=== PATIENT | female | born 1985 | race Native Hawaiian/Other Pacific Islander ===

== ENCOUNTER 2016-12-28 12:21 | Emergency (ER) | payer SELFPAY ==
[2016-12-28 13:16] VITALS: O2SAT 100
[2016-12-28] MEDS ORDERED: Sodium Chloride 0.9% 1,000 ML IV ONE (14:29)
[2016-12-28] MEDS ORDERED: Sodium Chloride 0.9% 1,000 ML ONE (14:52)
[2016-12-28 15:05] LABS: BASO % 0.7 % (0.0-2.0); EOS % 0.5 % (0.0-4.0); HEMATOCRIT 24.4 % (34.0-47.0); LYMPH # 1.5 K/uL (1.0-4.3); LYMPH % 30.3 % (20.0-40.0); MEAN CELL VOLUME 64.9 fL (81.0-99.0); MEAN CORPUSCULAR HEMOGLOBIN 18.8 pg (27.0-31.0); MEAN CORPUSCULAR HGB CONC 28.9 g/dL (33.0-37.0); MEAN PLATELET VOLUME 9.2 fL (7.2-11.7); MONO # 0.4 K/uL (0.0-0.8); MONO % 8.7 % (0.0-10.0); RED CELL DISTRIBUTION WIDTH 17.6 % (11.5-14.5)
[2016-12-28 15:23] LABS: CHLORIDE 103 mmol/L (98-107); POTASSIUM 3.9 mmol/L (3.6-5.2); SODIUM 139 mmol/L (132-148)
[2016-12-28 15:26] LABS: BLOOD UREA NITROGEN 4 mg/dL (7-17); CARBON DIOXIDE 19 mmol/L (22-30); GFR AFRICAN-AMERICAN > 60; GLUCOSE,RANDOM 84 mg/dL (65-105)
[2016-12-28 15:27] LABS: CALCIUM 8.6 mg/dl (8.6-10.4)
[2016-12-28 15:29] LABS: RBC URINE 3 /hpf (0-3); URINE BILIRUBIN NEGATIVE (NEGATIVE); URINE BLOOD NEGATIVE (NEGATIVE); URINE COLOR Yellow (YELLOW); URINE GLUCOSE (UA) NORMAL (Normal); URINE KETONE TRACE mg/dL (NEGATIVE); URINE LEUKOCYTE ESTERASE 3+ Leu/uL (Negative); URINE PROTEIN NEGATIVE (NEGATIVE); URINE UROBILINOGEN NORMAL mg/dL (0.2-1.0); WBC URINE 10 /hpf (0-5)
--- NOTE | 2016-12-28 15:33 | C.PDOC ---
History Of Present Illness 31 yr old female presents to the ER with complaints of vaginal pain for the past 3-4 days. Patient states the pain is sharp, 10/10 and comes in sudden jolts , lasts only for few moments and goes away. Patient states the pain comes mostly during night time and dyspareunia. Patient reports she was seen at [facility] last month and was diagnosed with yeast infection and treated. Family states they have noticed the patient looks pale, with pale conjunctiva and nail beds for the past few months. Patient was on Iron pills for the anemia but it exacerbated the abdominal pain. 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 Patient states she bleeds almost every time she has a bowel movement. Patient reports similar symptoms which prompted the visit. Patient denies fever, chills, chest pain, SOB, nausea, vomiting, abdominal pain, diarrhea, dysuria, incontinence, weakness or numbness. Time Seen by Provider: 12/28/16 13:44 Chief Complaint (Nursing): Female Genitourinary History Per: Patient History/Exam Limitations: no limitations Onset/Duration Of Symptoms: Days Current Symptoms Are (Timing): Still Present Past Medical History Reviewed: Historical Data, Nursing Documentation, Vital Signs Vital Signs: Last Vital Signs Temp 98.3 F 12/28/16 17:48 Pulse 78 12/28/16 17:48 Resp 18 12/28/16 17:48 BP 99/63 L 12/28/16 17:48 Pulse Ox 100 12/28/16 18:36 Family History: States: No Known Family Hx - Social History Hx Alcohol Use: No Hx Substance Use: No - Immunization History Hx Tetanus Toxoid Vaccination: No Hx Influenza Vaccination: No Hx Pneumococcal Vaccination: No Review Of Systems Except As Marked, All Systems Reviewed And Found Negative. Constitutional: Negative for: Fever, Chills Cardiovascular: Negative for: Chest Pain Respiratory: Negative for: Shortness of Breath Gastrointestinal: Negative for: Nausea, Vomiting, Abdominal Pain, Diarrhea Genitourinary: Positive for: Other ((+) Vaginal pain ). Negative for: Dysuria, Incontinence Neurological: Negative for: Weakness, Numbness Physical Exam - Physical Exam Appears: Well, Non-toxic, No Acute Distress, Other (Pale nail beds) Skin: Warm, Dry, Pale, No Rash, Other Head: Atraumatic, Normacephalic Eye(s): bilateral: Other (pale conjunctiva) Oral Mucosa: Moist Pelvic: Normal External Exam, Vaginal Discharge (copius thin, yellow discharge. ), No Cervical Motion Tenderness, Other (During exam, patient seemed in pain. ) Extremity: Normal ROM, No Swelling Neurological/Psych: Oriented x3, Normal Speech, Normal Motor ED Course And Treatment - Laboratory Results Result Diagrams: 12/28/16 14:59 12/28/16 14:59 O2 Sat by Pulse Oximetry: 100 - CT Scan/US US - Transvaginal/Pelvis Other Rad Studies (CT/US): Read By Radiologist, Radiology Report Reviewed CT/US Interpretation: HISTORY: r/o TOA. COMPARISON: None available. TECHNIQUE: Real-time transabdominal pelvic ultrasound was performed. In addition a transvaginal pelvic ultrasound was necessary to better depict pelvic anatomy. FINDINGS: UTERUS: Measures 8.9 x 5.2 x 4.5 cm. Anteverted. ENDOMETRIUM: Measures 1.4 cm in diameter. CERVIX: No cervical abnormality identified. RIGHT OVARY: Measures 4.4 x 2.2 x 4.2 cm. Blood flow is demonstrated. LEFT OVARY: Measures 3.0 x 2.3 x 2.8 cm. Blood flow is demonstrated. FREE FLUID: Small pelvic free fluid, may be physiologic. OTHER FINDINGS: None. IMPRESSION: No acute findings appreciated. Progress Note: Patient was given prescription for antibiotics for the vaginitis and iron for the anema. Colace to soften the stool. Medical Decision Making Medical Decision Making: PLAN: * US - Transvaginal/Pelvis * GC Chlamydia * CBC * BETA Urine * Urinalysis * Toradol IVP * Sodium Chloride IV Disposition Counseled Patient/Family Regarding: Diagnosis, Need For Followup, Rx Given - Disposition Referrals: [facility] [Outside] Disposition: HOME/ ROUTINE Disposition Time: 17:27 Condition: STABLE Additional Instructions: Please follow up in clinic. You need to see [employer] RO[employer]ENDANT [place]. Prescriptions: Docusate [Colace] 100 mg PO BID #20 cap Doxycycline Monohydrate 100 mg PO BID #14 tablet Ferrous Sulfate [High Potency Iron] 134 mg PO TID #30 tablet Nitrofurantoin Macrocrystals [Macrobid] 1 cap PO BID #14 cap Instructions: Vaginitis (ED), Anemia (ED) Forms: General Discharge Instructions, Work/School/Gym Excuse - POA Present On Arrival: None - Clinical Impression Clinical Impression: Vaginal pain, Anemia, Anal fissure - Scribe Statement The provider has reviewed the documentation as recorded by the Lizethibe Gricelda Guajardo Provider Attestation: All medical record entries made by the Lizethibe were at my direction and personally dictated by me. I have reviewed the chart and agree that the record accurately reflects my personal performance of the history, physical exam, medical decision making, and the department course for this patient. I have also personally directed, reviewed, and agree with the discharge instructions and disposition.
--- NOTE | 2016-12-28 16:29 | US ---
HISTORY: r/o TOA COMPARISON: None available. TECHNIQUE: Real-time transabdominal pelvic ultrasound was performed. In addition a transvaginal pelvic ultrasound was necessary to better depict pelvic anatomy FINDINGS: UTERUS: Measures 8.9 x 5.2 x 4.5 cm. Anteverted. ENDOMETRIUM: Measures 1.4 cm in diameter. CERVIX: No cervical abnormality identified. RIGHT OVARY: Measures 4.4 x 2.2 x 4.2 cm. Blood flow is demonstrated. LEFT OVARY: Measures 3.0 x 2.3 x 2.8 cm. Blood flow is demonstrated. FREE FLUID: Small pelvic free fluid, may be physiologic. OTHER FINDINGS: None. IMPRESSION: No acute findings appreciated.
[2016-12-28] MEDS ORDERED: cefTRIAXone (Rocephin) 250 mg Inj IM STA (17:26)
[2016-12-28 17:49] VITALS: BP 99/63; PULSE 78; RESP 18; TEMP 98.3
[2016-12-28] MEDS ORDERED: cefTRIAXone 250 MG in Lidocaine Hydrochloride 0.9 ML IM ONE (19:00)
== END 2016-12-28 18:31 | disposition home or self-care (01) ==
LOC: C.ER 12:21
DX: R10.2 Pelvic and perineal pain (principal); D64.9 Anemia, unspecified; K60.2 Anal fissure, unspecified
CPT/HCPCS: 76830; 76856; 80048; 81001; 84702; 84703; 85025; 87491; 87591; 96361; 96372; 96374; 99285; J0696; J1885; J7040